=== PATIENT | female | born 1970 | race Caucasian/White ===

== ENCOUNTER → 2022-05-18 | Outpatient (CLI) | payer BC ==
[~2022-05-18] MED LIST: AGM875T PO; DCS100C PO; HYDR-34 PO; IBP600T1 PO; OMEP-10 PO; PRM25T PO; SERT50TA2 PO; ZLP5T PO
== END ==
LOC: CARD 10:00
PROVIDERS: ATTEND Internal Medicine Cardiovascular Disease
DX: I51.7 Cardiomegaly (principal); I34.0 Nonrheumatic mitral (valve) insufficiency
CPT/HCPCS: 93306

== ENCOUNTER → 2022-05-20 | Outpatient (CLI) | payer BC ==
[~2022-05-20] VITALS: Ht 160 cm; Wt 86.0 kg
[~2022-05-20] MED LIST changes: +CATHETER FLUSH 10 ML SYR IVP PRN
[2022-05-20 09:27] VITALS: BP 136/92
--- NOTE | 2022-05-20 18:25 | NUCLEAR STRESS TEST ---
TREADMILL NUCLEAR STRESS TEST Date of procedure: 05/20/2022. Primary care provider: Radha Alfonso MD. Admitting physician: Vinny Álvarez Jr., MD. INDICATION: Abnormal electrocardiogram. BASELINE ELECTROCARDIOGRAM: Sinus rhythm with diffuse, nonspecific ST-T wave changes. STRESS TEST PROCEDURE: The patient was exercised for a total of 11 minutes and 0 seconds of the standard Donn protocol achieving a maximum MET level of 12.1. The resting heart rate was 62 bpm and the peak heart rate was 159 bpm, which represents 94% of the maximum predicted heart rate. The resting blood pressure was 129/88 mmHg and the peak blood pressure was 210/67 mmHg. This represents a normal heart rate and a hypertensive blood pressure response to exercise. The test was stopped due to fatigue. There was no chest discomfort during the test. There were no arrhythmias during the test. The stress electrocardiogram was indeterminate due to the baseline abnormalities. The patient exhibited excellent exercise capacity for age. NUCLEAR PROCEDURE: The patient was administered 10.9 mCi of intravenous technetium 99m Tetrofosmin at rest for the rest images. The patient was subsequently administered 30.6 mCi of intravenous technetium 99 M Tetrofosmin at peak stress for the stress images. Following an appropriate wait after each injection, imaging was obtained. The images were subsequently processed and reformatted in the usual views. Gated imaging was obtained. The image quality was adequate with a mild degree of gastrointestinal attenuation artifact. CT attenuation correction was used as a adjunct to standard imaging. Both the cor rected and uncorrected images were reviewed for interpretation. NUCLEAR RESULTS: There was normal myocardial perfusion in all segments without evidence of infarction or ischemia. There was normal left ventricular chamber size with an end-diastolic volume of 52 mL and an end-systolic volume of 17 mL. There was no evidence of transient ischemic dilatation. The TID ratio was 0.83. There was normal wall motion in all segments with a calculated ejection fraction of 67%. IMPRESSION: 1. Normal heart rate and a hypertensive blood pressure response to exercise. 2. There was no chest discomfort or arrhythmias during the test. 3. The stress electrocardiogram was indeterminant due to the baseline abnormalities. 4. The patient exhibited excellent exercise capacity for age at 11 minutes of the Donn protocol. 5. There was normal myocardial perfusion in all segments without evidence of infarction or ischemia. 6. There was normal wall motion in all segments with a calculated ejection fraction of 67%. Certain portions of this document may have been dictated utilizing voice recognition technology. Inherent to this technology, typographical and grammatical errors may exist. As much as I am diligent to identify and correct these mistakes, some errors may remain in the document. VINNY ÁLVAREZ JR, MD May 20, 2022 18:25
== END ==
LOC: CARD 08:09
PROVIDERS: ATTEND Internal Medicine Cardiovascular Disease
DX: R94.31 Abnormal electrocardiogram [ECG] [EKG] (principal)
CPT/HCPCS: 78452; 93017; A9502

== ENCOUNTER 2023-06-06 15:13 | Outpatient (CLI) | payer BC ==
[~2023-06-06 15:13] MED LIST changes: -CATHETER FLUSH 10 ML SYR IVP PRN
== END 2023-06-06 15:50 ==
LOC: SLEEP 15:13
PROVIDERS: ATTEND Family Medicine
DX: G47.33 Obstructive sleep apnea (adult) (pediatric) (principal)
CPT/HCPCS: G0399